=== PATIENT | female | born 1975 | race Caucasian/White ===

== ENCOUNTER → 2021-01-15 | Day surgery (SDC) | payer OTHER ==
--- NOTE | 2021-01-15 12:16 | RAD REPORT ---
EXAM DESCRIPTION: Ultrasound-guided vacuum assisted left breast core biopsy Ultrasound-guided vacuum assisted left axillary core biopsy CLINICAL HISTORY: Breast mass, left axillary mass N63.0, R22.32 COMPARISON: Breast Core BX [facility] dated 01/15/2021 FINDINGS: Informed consent was obtained and time-out was performed. The patient's left breast and left axilla breast was prepped and draped in the usual sterile fashion. 1% lidocaine was used for local anesthetic purposes. Utilizing aseptic technique and ultrasound guidance, a 12 gauge vacuum assisted core biopsy device wa s used to obtain 1 core specimens through the mass of interest left breast upper outer quadrant. A po st biopsy clip was then placed. Following this, and utilizing aseptic technique and ultrasound guidance, a 12 gauge vacuum assisted c ore biopsy device was used to obtain 1 core specimens through the mass of interest in the left axilla . A post biopsy clip was then placed. All collected material was sent for cytology. Patient tolerated procedure well. IMPRESSION: Successful ultrasound guided vacuum assisted left breast mass and left axilla mass biops y.
--- NOTE | 2021-01-15 13:35 | RAD REPORT ---
EXAM DESCRIPTION: US - Breast Core BX [facility] - 01/15/2021 10:15 am CLINICAL HISTORY: Breast mass, left axillary mass N63.0, R22.32 COMPARISON: Breast Core BX [facility] dated 01/15/2021 FINDINGS: Informed consent was obtained and time-out was performed. The patient's left breast and left axilla breast was prepped and draped in the usual sterile fashion. 1% lidocaine was used for local anesthetic purposes. Utilizing aseptic technique and ultrasound guidance, a 12 gauge vacuum assisted core biopsy device wa s used to obtain 1 core specimens through the mass of interest left breast upper outer quadrant. A po st biopsy clip was then placed. Following this, and utilizing aseptic technique and ultrasound guidance, a 12 gauge vacuum assisted c ore biopsy device was used to obtain 1 core specimens through the mass of interest in the left axilla . A post biopsy clip was then placed. All collected material was sent for cytology. Patient tolerated procedure well. IMPRESSION: Successful ultrasound guided vacuum assisted left breast mass and left axilla mass biops y.
== END ==
LOC: DS 09:20
PROVIDERS: ATTEND Internal Medicine
DX: C50.412 Malignant neoplasm of upper-outer quadrant of left female breast (principal); C77.3 Secondary and unspecified malignant neoplasm of axilla and upper limb lymph nodes; R22.32 Localized swelling, mass and lump, left upper limb
CPT/HCPCS: 19083; 19084; 88305